=== PATIENT | male | born 1955 | race Hispanic/Latino ===

== ENCOUNTER → 2020-09-13 | Day surgery (SDC) | payer OTHER ==
[~2020-09-13] MED LIST: CRESTOR10 MG PO; GLYCOPYRROLATE INJ 0.2 MG/ML VIAL ONE; JANUVIA100 MG PO; LIDOCAINE HCL 2% LOCAL INJ 5 ML SDV VIAL INJ ONE; METFORMIN HCL500 MG PO; PROPOFOL IV EMULSION 10 MG/ML 20 ML VIAL ONE
[2020-09-13 09:05] VITALS: BP 126/76
== END | disposition home or self-care (01) ==
LOC: OR 06:11
PROVIDERS: ATTEND Internal Medicine Gastroenterology
DX: Z12.11 Encounter for screening for malignant neoplasm of colon (principal); K63.5 Polyp of colon; K64.8 Other hemorrhoids; K59.00 Constipation, unspecified; Z71.3 Dietary counseling and surveillance; E78.5 Hyperlipidemia, unspecified; E66.3 Overweight; E11.9 Type 2 diabetes mellitus without complications; Z01.810 Encounter for preprocedural cardiovascular examination; Z01.812 Encounter for preprocedural laboratory examination; Z20.822 Contact with and (suspected) exposure to COVID-19; Z79.84 Long term (current) use of oral hypoglycemic drugs; Z68.28 Body mass index [BMI] 28.0-28.9, adult; Z86.16 Personal history of COVID-19
CPT/HCPCS: 45385; 93005; J2001; J2704; U0002; 45378